=== PATIENT | female | born 2000 | race Caucasian/White ===

== ENCOUNTER 2022-01-19 19:18 | Emergency (ER) | payer OTHER ==
[2022-01-19 21:08] LABS: B. PARAPERTUSSIS- RESP PCR PAN NOT DETECTED; B. PERTUSSIS- RESP PCR PANEL NOT DETECTED; C. PNEUMONIAE- RESP PCR PANEL NOT DETECTED; CORONAVIRUS 229E-RESP PCR NOT DETECTED; CORONAVIRUS HKU1-RESP PCR NOT DETECTED; CORONAVIRUS NL63-RESP PCR NOT DETECTED; CORONAVIRUS OC43-RESP PCR NOT DETECTED; HUMAN METAPNEUMOVIRUS NOT DETECTED; INFLUENZA A- RESP PCR PANEL NOT DETECTED; INFLUENZA B - RESP PCR PANEL NOT DETECTED; M. PNEUMONIAE- RESP PCR PANEL NOT DETECTED; PARAINFLUENZA VIRUS 1 NOT DETECTED; PARAINFLUENZA VIRUS 2 NOT DETECTED; PARAINFLUENZA VIRUS 3 NOT DETECTED; PARAINFLUENZA VIRUS 4 NOT DETECTED; RHINOVIRUS/ENTEROVIRUS DETECTED; RSV- RESP PCR PANEL NOT DETECTED; SARS-CoV-2 -RESP PCR PANEL NOT DETECTED
--- NOTE | 2022-01-19 21:28 | ED Physician Documentation ---
PD HPI URI - Stated complaint Stated Complaint: SOA/COUGH/CONGESTION - Chief complaint Chief Complaint: Resp - History obtained from History obtained from: Patient - History of Present Illness Timing - onset: Yesterday Timing details: Gradual onset Associated symptoms: Nasal congestion, Rhinorrhea, Dry cough, Dyspnea, Other (post-nasal drip). No: Fever Recently seen: Not recently seen Review of Systems Constitutional: denies: Fever Nose: reports: Rhinorrhea / runny nose, Congestion, Other (post-nasal drip) Throat: denies: Sore throat Respiratory: reports: Dyspnea, Cough PD PAST MEDICAL HISTORY - Past Medical History Past Medical History: No - Present Medications Home Medications: Ambulatory Orders Medication Instructions Recorded Confirmed Albuterol Sulfate [Proair 90 mcg IH 01/19/22 Respiclick] Sertraline [Zoloft] 50 mg PO DAILY 01/19/22 01/19/22 norethindrone-e.estradioL-iron 1 each PO 01/19/22 [Microgestin Fe 1.5-30 Tab] - Allergies Allergies/Adverse Reactions: Allergies Allergy/AdvReac Type Severity Reaction Status Date / Time Penicillins Allergy Anaphylaxis Verified 01/19/22 19:27 PD ED PE NORMAL - Vitals Vital signs reviewed: Yes - General General: Alert and oriented X 3, No acute distress, Well developed/nourished - HEENT HEENT: Moist mucous membranes, Pharynx benign - Neck Neck: Supple, no meningeal sign - Respiratory Respiratory: No respiratory distress, Clear bilaterally Results - Vitals Vitals: Oxygen O2 Source Room air - Labs Labs: Laboratory Tests 01/19/22 19:25 Nasal Adenovirus (PCR) NOT DETECTED Nasal B. parapertussis DNA (PCR) NOT DETECTED Nasal Coronavir 229E PCR NOT DETECTED Nasal Coronavir HKU1 PCR NOT DETECTED Nasal Coronavir NL63 PCR NOT DETECTED Nasal Coronavir OC43 PCR NOT DETECTED Nasal Enterovir/Rhinovir PCR DETECTED A Nasal Influenza B PCR NOT DETECTED Nasal Influenza A PCR NOT DETECTED Nasal Parainfluen 1 PCR NOT DETECTED Nasal Parainfluen 2 PCR NOT DETECTED Nasal Parainfluen 3 PCR NOT DETECTED Nasal Parainfluen 4 PCR NOT DETECTED Nasal RSV (PCR) NOT DETECTED Nasal B.pertussis DNA PCR NOT DETECTED Nasal C.pneumoniae (PCR) NOT DETECTED Joel Human Metapneumo PCR NOT DETECTED Nasal M.pneumoniae (PCR) NOT DETECTED Nasal SARS-CoV-2 (PCR) NOT DETECTED PD MEDICAL DECISION MAKING - ED course Complexity details: reviewed results, re-evaluated patient, considered differential, d/w patient ED course: respiratory PCR panel is positive for enterovirus/rhinovirus. Lungs CTA bilaterally. Diagnosis d/w patient, provided work note. Departure - Departure Disposition: 01 Home, Self Care Clinical Impression: Rhinovirus Instructions: ED URI Viral Comments: You tested positive for enterovirus/rhinovirus (these are two different types of virus, but they have similar symptoms and neither has a specific treatment such as an antibiotic or anti-viral medication). It is very uncommon for this type of virus to cause serious problems; typical course is 3-4 days of upper respiratory symptoms (cough/cold/fever). You can take an anti-histamine (such as benadryl) for the post-nasal drip and runny nose, particularly at night to help with sleep. During the day you should take an expectorant such as mucinex to help keep secretions loose. Ibuprofen as per label instructions for headache, aches/pains, fever. Forms: Activity restrictions Discharge Date/Time: 01/19/22 22:05
[2022-01-19 21:57] VITALS: BP 105/70
== END 2022-01-19 22:05 | disposition home or self-care (01) ==
LOC: ED 19:18
DX: B34.8 Other viral infections of unspecified site (principal); Z20.822 Contact with and (suspected) exposure to COVID-19
CPT/HCPCS: 87633; 99282; 99283

== ENCOUNTER 2022-03-08 18:48 | Emergency (ER) | payer OTHER ==
[2022-03-08] MEDS ORDERED: cephALEXin 250 MG CAPSULE PO STA (19:24)
--- NOTE | 2022-03-08 19:25 | ED Physician Documentation ---
History of Present Illness - Stated complaint Stated Complaint: FEMALE - Chief complaint Chief Complaint: Wound - Additonal information Additional information: History is obtained by the patient. Reliable historian 21-year-old female presents to the emergency department for an area of redness on her right inner buttock that began about 2 days ago. She describes it as very tender. No history of similar. No fevers. No drainage. She does shave her genitalia with a razor quite frequently though reports using a new razor each time. Tetanus is up-to-date. Review of Systems Constitutional: denies: Fever Nose: reports: Reviewed and negative Cardiac: reports: Reviewed and negative Respiratory: reports: Reviewed and negative GI: reports: Reviewed and negative Skin: reports: Lesions Musculoskeletal: reports: Reviewed and negative PD PAST MEDICAL HISTORY - Past Medical History Psych: Anxiety - Past Surgical History Past Surgical History: Yes - Present Medications Home Medications: Ambulatory Orders Medication Instructions Recorded Confirmed Albuterol Sulfate [Proair 90 mcg IH 01/19/22 Respiclick] Sertraline [Zoloft] 50 mg PO DAILY 01/19/22 01/19/22 norethindrone-e.estradioL-iron 1 each PO 01/19/22 [Microgestin Fe 1.5-30 Tab] Bacitracin Zinc Oint 1 applic TOP BID #1 each 03/08/22 cephALEXin [Keflex] 500 mg PO Q6H #28 cap 03/08/22 - Allergies Allergies/Adverse Reactions: Allergies Allergy/AdvReac Type Severity Reaction Status Date / Time Penicillins Allergy Anaphylaxis Verified 03/08/22 18:57 - Social History Does the pt smoke?: No Smoking Status: Never smoker Does the pt drink ETOH?: Yes Does the pt have substance abuse?: No - Immunizations Immunizations are current?: Yes PD ED PE EXPANDED - General General: Alert, No acute distress, Anxious - 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 No fluctuance or drainage. Bedside ultrasound does not reveal a fluid collection or abscess) Results - Vitals Vitals: Vital Signs - 24 hr 03/08/22 18:52 Temperature 37.6 C Heart Rate 84 Respiratory 16 Rate Blood Pressure 117/76 O2 Saturation 98 Oxygen O2 Source Room air PD Medical Decision Making - ED course Complexity details: considered differential, d/w patient ED course: 21-year-old female presents emergency department for evaluation of a painful area of erythema in the right anterior inner buttock. This is in the region where she shaves her genitalia. It appears as though she got an infection due to an ingrown hair. Utilizing bedside ultrasound I did not find any evidence of abscess or formal fluid collection. Given this she will be started on Keflex for simple cellulitis. Clinically there is nothing to suggest a perirectal or perianal abscess. Advised warm compress as well as emergent return precautions. Departure - Departure Disposition: Home, Self Care Clinical Impression: Cellulitis of buttock, right Condition: Stable Record reviewed to determine appropriate education?: Yes Prescriptions: Bacitracin Zinc Oint 1 applic TOP BID #1 each cephALEXin [Keflex] 500 mg PO Q6H #28 cap Comments: You have developed an area of redness and pain on your right inner anterior buttock region. This is where you have recently shaved. As we discussed at the bedside I suspect that you have developed a simple bacterial infection of the skin from shaving. The ultrasound at the bedside did not show that you have any fluid collections or abscess development. I would like you to sit in a warm sitz bath if you can for 10 minutes 3 times a day. If you do not have access to a bath or they could place a warm compress on your inner buttock for 10 minutes 3 times a day. Fill the prescription tomorrow for the cephalexin and begin taking as directed. You can also apply an antibiotic ointment to this area 2-3 times a day which may help prevent chafing and improve pain. Otherwise you can take [id number] ibuprofen and Tylenol for discomfort. Return to the emergency department if worsening
[2022-03-08 19:39] VITALS: BP 113/69
== END 2022-03-08 19:38 | disposition home or self-care (01) ==
LOC: ED 18:48
DX: L03.317 Cellulitis of buttock (principal)
CPT/HCPCS: 99282; 99284; A9270

== ENCOUNTER 2022-04-30 08:00 | Outpatient (CLI) | payer OTHER ==
[2022-04-30 22:42] LABS: BACTERIAL VAGINOSIS DNA NEGATIVE (NEGATIVE); CANDIDA GLABRATA DNA NEGATIVE (NEGATIVE); CANDIDA GROUP DNA NEGATIVE (NEGATIVE); CANDIDA KRUSEI DNA NEGATIVE (NEGATIVE); TRICHOMONAS VAGINALIS DNA NEGATIVE (NEGATIVE)
[2022-05-01 01:19] LABS: CHLAMYDIA TRACHOMATIS DNA NEGATIVE (NEGATIVE); NEISSERIA GONORRHOEAE DNA NEGATIVE (NEGATIVE)
== END 2022-04-30 23:59 | disposition home or self-care (01) ==
LOC: LAB.N 08:00
PROVIDERS: ATTEND Nurse Practitioner
DX: N89.8 Other specified noninflammatory disorders of vagina (principal)
CPT/HCPCS: 81514; 87086; 87491; 87591; 87661

== ENCOUNTER 2023-05-06 22:13 | Emergency (ER) | payer OTHER ==
[2023-05-06 22:35] VITALS: O2SAT 100
--- NOTE | 2023-05-07 00:26 | ED Physician Documentation ---
History of Present Illness - Stated complaint Stated Complaint: MED WITHDRAWL - Chief complaint Chief Complaint: General - History obtained from History obtained from: Patient - Additonal information Additional information: 22yF, currently 8 wga, p/w withdrawal symptoms after stopping venlafaxine a couple days ago, tapering down from 150 to 75 mg over a course of weeks. patient states she was tearful, headachey, and experiencing electric sensation in the brain. denies weakness, fnd, loc. PD PAST MEDICAL HISTORY - Past Medical History Psych: Anxiety - Past Surgical History Past Surgical History: Yes - Present Medications Home Medications: Ambulatory Orders Medication Instructions Recorded Confirmed Venlafaxine [Effexor] 37.5 mg PO QDAC #14 tablet 05/07/23 - Allergies Allergies/Adverse Reactions: Allergies Allergy/AdvReac Type Severity Reaction Status Date / Time No Known Drug Allergies Allergy Verified 05/06/23 22:33 - Social History Does the pt smoke?: No Smoking Status: Never smoker Does the pt drink ETOH?: Yes Does the pt have substance abuse?: No - Immunizations Immunizations are current?: Yes PD ED PE NORMAL - Vitals Vital signs reviewed: Yes - General General: Alert and oriented X 3, No acute distress, Well developed/nourished - HEENT HEENT: Atraumatic, PERRL, EOMI - Derm Derm: Normal color, Warm and dry - Neuro Neuro: Alert and oriented X 3, conformal pad former 2-12 intact, No motor deficit, No sensory deficit, Normal speech Eye Opening: Spontaneous Motor: Obeys Commands Verbal: Oriented GCS Score: 15 - Psych Psych: Normal mood, Normal affect Results - Vitals Vitals: Vital Signs - 24 hr 05/06/23 22:26 Temperature 37.3 C Heart Rate 85 Respiratory 17 Rate Blood Pressure 106/64 O2 Saturation 100 Oxygen O2 Source Room air PD Medical Decision Making - ED course ED course: 22yF presents to the ED with effexor withdrawal symptoms for the past couple days. patient otherwise well appearing with benign vitals and exam, denies si/hi/avh. uncomplicated, denies urinary sx, vag bleeding. discussed o ptions including restarting effexor at lower dose for short course then tapering off and she was agreeable. plan to f/u with pcm outpatient. return precautions given. Departure - Departure Disposition: Home, Self Care Clinical Impression: Medication withdrawal Condition: Stable Prescriptions: Venlafaxine [Effexor] 37.5 mg PO QDAC #14 tablet Comments: You were seen in the emergency department for Effexor withdrawal. Prescription sent electronically to [facility] for low dose effexor. Please follow-up with your primary care provider and return to the emergency department if you have any new or worsening symptoms or other concerns. Forms: PCP List
[2023-05-07] MEDS: ACETAMINOPHEN 325 MG TABLET PO STA (00:32)
[2023-05-07 00:44] VITALS: BP 112/65
== END 2023-05-07 01:14 | disposition home or self-care (01) ==
LOC: ED 22:13
DX: O26.891 Other specified pregnancy related conditions, first trimester (principal); Z3A.08 8 weeks gestation of pregnancy; F19.239 Other psychoactive substance dependence with withdrawal, unspecified
CPT/HCPCS: 99282; 99283

== ENCOUNTER 2023-10-21 14:58 | Outpatient (CLI) | payer OTHER ==
[2023-10-21 15:27] VITALS: BP 118/68; O2SAT 98
--- NOTE | 2023-10-21 16:12 | PROVIDER PROGRESS NOTE ---
- HPI Chief Complaint: Labor Current : Current EDU 12/16/23 Gestation 32 Weeks and 0 Days 1 Para 0 Vital Signs Temperature 98.2 F 10/21/23 15:18 Heart Rate 82 10/21/23 15:18 Respiratory Rate 17 10/21/23 15:18 Blood Pressure 118/68 10/21/23 15:18 O2 Saturation 98 10/21/23 15:18 Temperature 98.2 F 10/21/23 15:18 Heart Rate 82 10/21/23 15:18 Respiratory Rate 17 10/21/23 15:18 Blood Pressure 118/68 10/21/23 15:18 O2 Saturation 98 10/21/23 15:18 If not protocol: Oxygen Flow, liters/minute - Procedures OB Procedure Performed: NST Diagnosis/Indication for NST: labor NST Procedure: NST Procedure Start Date 10/21/23 Start Time 15:00 Stop Time 15:30 EFM: 130s, moderate variability, positive 15x15 accelerations, no decelerations [place]: no contractions NST reactive/Cat 1 Performed and read 10/21/23 Service Date of procedure: 10/21/23 - Plan Plan: 22yo at 31.6w presenting with left abdominal pain which started today. Unsure if contractions. Denies leaking fluid, vaginal bleeding. Good movement. No nausea or vomiting. She has had a couple episodes of diarrhea, last BM yesterday. Afebrile. No dysuria. care uncomplicated, at . NKDA Meds: Med/Surg: denies Fam: Noncontributory Social: AD VSS GEN: NAD CV: Regular rate Resp: Breathing unlabored Abd: soft, mild discomfort left side, no rebound or guarding Ext: nt 22yo at 31.6w, false labor - Possible round ligament or positioning. Return precautions reviewed - Discharge to home. Follow up at next Wednesday as scheduled. She would like to transfer to , advised her to call office this week.
== END 2023-10-21 15:50 | disposition home or self-care (01) ==
LOC: WFO 14:58 → FBP 15:08 → WFO 15:50
PROVIDERS: ATTEND Obstetrics & Gynecology
DX: O47.03 False labor before 37 completed weeks of gestation, third trimester (principal); Z3A.31 31 weeks gestation of pregnancy
CPT/HCPCS: 59025; 99213; 99215